=== PATIENT | female | born 1950 | race Caucasian/White ===

== ENCOUNTER → 2019-04-12 11:00 | Outpatient (CLI) | payer MEDICARE, OTHER | END | disposition home or self-care (01) | LOC: D.CT 11:00 | PROVIDERS: ATTEND Nurse Practitioner Family | DX: R09.02 Hypoxemia (principal); R60.0 Localized edema ==

== ENCOUNTER 2019-04-18 07:11 | Emergency (ER) | payer MEDICARE, OTHER ==
[2019-04-18 07:17] VITALS: Wt 75.0 kg
[2019-04-18] MEDS ORDERED: GABAPENTIN300 MG PO (07:29)
[2019-04-18] MEDS ORDERED: HYDROCODON-ACE1 EA10 PO (07:29)
[2019-04-18] MEDS ORDERED: TIROSINT88 MCG PO (07:29)
[2019-04-18] MEDS ORDERED: METOPROLOL TART50 MG PO (07:30)
[2019-04-18] MEDS ORDERED: INDOCIN25 MG PO (07:30)
[2019-04-18] MEDS ORDERED: OXYBUTYNIN CHLOR5 MG PO (07:31)
[2019-04-18] MEDS ORDERED: HYDROCHLOROTHIA25 MG PO (07:31)
[2019-04-18] MEDS ORDERED: ZANAFLEX4 MG PO (07:31)
[2019-04-18 07:58] LABS: BASOPHILS 0.4 % (0-2); EOSINOPHILS 9.3 % (0-7); HEMATOCRIT 36.7 % (36.0-48.0); HEMOGLOBIN 11.8 g/dL (12-16); IMMATURE GRANULOCYTES 0.4 % (0-5); MCH 24.9 pg (26.0-34.0); MCHC 32.2 g/dL (31.0-37.0); MCV 77.6 fL (80.0-100.0); MEAN PLATELET VOLUME 8.5 fL (7.4-10.4); MONOCYTES 10.3 % (2-11); NEUTROPHILS 54.6 % (40-80); PLATELET COUNT 275 10x3/uL (130-400); RBC 4.73 10x6/uL (4.00-5.40); RDW 15.8 % (11.5-14.5); WBC 8.2 10x3/uL (4.8-10.8)
[2019-04-18 08:17] LABS: CALCIUM 9.4 mg/dL (8.5-10.1); CARBON DIOXIDE 25.6 mmol/L (21.0-32.0); CREATININE - SERUM 1.6 mg/dL (0.6-1.3); POTASSIUM - SERUM 4.6 mmol/L (3.5-5.1)
[2019-04-18 08:29] LABS: ALBUMIN 2.9 g/dL (3.4-5.0); BILIRUBIN - TOTAL 0.55 mg/dL (0.2-1.3)
[2019-04-18 08:52] LABS: BILIRUBIN NEGATIVE (NEGATIVE); GLUCOSE NEGATIVE (NEGATIVE); KETONE NEGATIVE (NEGATIVE); NITRITE NEGATIVE (NEGATIVE); SPECIFIC GRAVITY 1.005 (1.005-1.020); UROBILINOGEN NORMAL (NORMAL)
[2019-04-18 09:58] VITALS: BP 142/72
== END 2019-04-18 10:00 | disposition home or self-care (01) ==
LOC: D.ER 07:11
PROVIDERS: Family Medicine
DX: G89.29 Other chronic pain (principal); R60.0 Localized edema; F11.23 Opioid dependence with withdrawal; N28.9 Disorder of kidney and ureter, unspecified; I10 Essential (primary) hypertension; M54.9 Dorsalgia, unspecified